=== PATIENT | male | born 1960 | race Caucasian/White ===

== ENCOUNTER 2022-02-02 06:23 | Observation (INO) ==
--- NOTE | 2022-01-11 15:42 | PAT Medication Instructions ---
Medication Instructions Date of Service January 11, 2022 Home Medications Medication Instructions Recorded Raheem Guerrero #1 ea 12/17/21 atorvastatin 20 mg tablet (Lipitor) 20 mg PO QAM metformin 500 mg tablet,extended release 24 hr 500 mg PO QAM Raheem Guerrero DO NOT take the morning of surgery metformin 500 mg tablet,extended release 24 hr 500 mg PO QAM Take morning of surgery With a small sip of water, OTHERWISE NOTHING TO EAT OR DRINK AFTER MIDNIGHT: atorvastatin 20 mg tablet (Lipitor) 20 mg PO QAM Other Notes If you have any questions please call us at [phone] or [phone] or [phone] or [phone]
--- NOTE | 2022-01-14 10:32 | Anesthesiology Consultation ---
Date of Service January 14, 2022 Assessment & Plan (1) Encounter for pre-operative examination: - check BSG am DOS. *Patient prefers to be called "Tork/torque" which is his nickname, states may be confused post-op being referred to as Tian. - Outpatient joint pathway: Per surgeon and patient, plan for outpatient joint program. Case discussed with Dr. Sawyer who advised patient is an acceptable candidate for [facility] from anesthesia perspective pending perioperative course. Pending patient is motivated, has good support and surgeon's office completes [facility] preop requirements- patient may proceed with outpatient TKA. - cardiology 07/2019 [facility]: "...earlier this year had a traumatic brain injury after fall during a pickle ball game. After fall during a pickle ball game. During his hospital admission the patient had a short episode of atrial fibrillation. He has now completely recovered from his injuries. He is back to playing [employer] ball and has no new cardiac complaints today. He denies heart palpitations or tachycardia. He has had no dizziness or lightheadedness. He denies chest pain. A 2 week monitor after the above indicated no episodes of atrial fibrillation...Recommendations: I do not playing any additional cardiac testing is indicated. The patient is doing well. At this point we will see him on an as-needed basis..." - COVID screening: Per assessment on 01/14/2022: Travel screen negative, no known COVID-19 positive contacts or current COVID-19 related symptoms in past 2 weeks. Surgeon arranging preop COVID testing, /2021. Awaiting results. Chart Review Chart Review: Acceptable Risk for Surgery and Patient seen in Pre Admission Testing Teaching & Discussion Pre-Anesthesia Teaching/Discussion Notes: Instructed NPO after midnight before surgery, except medications with 15 cc of water. Medication instructions provided according to the PAT guidelines. History Surgery Operation Date: 02/02/22 12:55 Proposed Procedures p Left Total Knee Arthroplasty - Vidal Martel MD Height/Weight Height: 5 ft 7 in Weight: 87.6 kg Allergies Allergy/AdvReac Type Severity Reaction Status Date / Time No Known Allergies Allergy Verified 01/11/22 08:09 Medications Home Medications Medication Instructions Recorded Confirmed Last Taken atorvastatin 20 mg tablet (Lipitor) 20 mg PO QAM 01/17/19 01/11/22 Unknown metformin 500 mg tablet,extended 500 mg PO QAM 01/17/19 01/11/22 Unknown release 24 hr Wheeled Walker #1 ea 12/17/21 12/17/21 Unknown Past Medical History Medical History (Updated 01/15/22 @ 15:23 by Shakira Christian PA-C) Cervical spine fracture history of, 01/2019, trauma d/t fall Chronic kidney disease, stage 3b Cr 1.7-2.0 over past 2 yrs, 1.9 10/2021, follows with [facility] nephrology History of subdural hematoma 01/2019, fall from standing height during sporting event, monitored without intervention per neurosurg records Hx of fracture of skull 01/2019, occipital fracture, d/t fall from standing height during sporting event, no intervention needed Hx of melanoma of skin WIDE MARGIN SECTION>RT ARM Hyperlipidemia Osteoarthritis Paroxysmal atrial fibrillation acute episode during admission for TBI, echo and 2 week monitor ordered outpt by cardio, negative Holter monitor and pt d/c from cardio clinic 07/2019 per [facility] cardio records Subarachnoid hemorrhage 01/2019, fall from standing height during sporting event, monitored without intervention per neurosurg records Traumatic intraparenchymal hemorrhage 01/2019, fall from standing height during sporting event, monitored without intervention per neurosurg records Type 2 diabetes mellitus NIDDM Patient denies h/o stroke, seizures, heart attack, heart failure, HTN, blood clots or blood transfusions. Exercise / Class Metabolic Activity II 4-5 Yardwork/Stairs/Walk up hill (denies CP or SOB with 1 FOS) Past Family History Family History Other Family history non-contributory No family history of adverse response to anesthesia Past Surgical History Surgical History H/O knee surgery LEFT>ACL REPAIR H/O sinus surgery POLYPS REMOVED H/O wrist surgery LEFT/RT WRIST FUSION History of colonoscopy History of tooth extraction Past Anesthesia History No Family Hx of Anesthesia Complications and Other ("grouchy" upon waking after surgery ) History of PONV No Hx of PONV and No Hx of Motion Sickness Social History Smoking Status: Never smoker tobacco type: smokeless tobacco Do You Dip or Chew Tobacco: No (QUIT 3 MONTHS AGO) Hx Alcohol Use: No Alcohol Intake Frequency Comment: QUIT 10 YEARS AGO Hx Substance Use: Yes substance use type: marijuana Last Used Substance Other:: LAST USED>COUPLE DAYS AGO (ADVISED) Review of Systems Snoring, denies witnessed apneas or sleep studies. Patient denies chest pain, shortness of breath, dyspnea on exertion, reflux, fever, chills, cough, wheezing, or palpitations. Physical Exam Vital Signs Vitals BP 124/78 P 72 TEMP 98.2 SP02 97% on RA RESP 17 Physical Full cervical extension range of motion without pain Full TMJ range of motion TMD 3 finger breaths Mallampati Score 2 Dentition: intact, caps throughout; denies loose teeth or bridges Lungs: normal respiratory effort. Clear throughout to auscultation, no adventitious breath sounds Cardiac: regular rate and rhythm, no murmurs noted Carotid arteries: negative bruit bilat Extremities: no distal extremity edema Lab Results Anesthesia Preop Results Results Anesthesia Widget: WBC 6.66 K/uL (4.8-10.8) 01/14/22 Hgb 12.6 g/dL (14.0-18.0) L 01/14/22 Hct 38.7 % (42-52) L 01/14/22 Plt 315 K/uL (130-400) 01/14/22 Na 139 mmol/L (136-145) 01/14/22 K 4.7 mmol/L (3.5-5.1) 01/14/22 Cl 111 mmol/L (98-107) H 01/14/22 CO2 20 mmol/L (21-32) L 01/14/22 BUN 35 mg/dl (6-23) H 01/14/22 Creat 1.83 mg/dl (0.6-1.4) H 01/14/22 Glucose Level 146 mg/dl (70-99(Fasting)) H 01/14/22 PT 10.0 Seconds (9.0-12.0) 01/14/22 PTT 25.5 Seconds (21.0-31.0) 01/14/22 INR 0.9 (0.9-1.1) 01/14/22 HA1c 7.0 % (4.5-5.6) H 01/14/22 Blood Type O Positive 01/14/22 Antibody Screen NEGATIVE 01/14/22 Testing Electrocardiogram Date: 01/14/22 NSR, rate 66 bpm Chest X-Ray Date: 01/14/22 FINDINGS: The lungs are clear. Cardiac silhouette is normal in size. No pleural effusions. No pneumothorax. IMPRESSION: No acute process. Echocardiogram Date: 02/20/19 EF 55-59% Normal LV wall motion Borderline concentric LV wall thickness increase Mild mitral regurgitation Mild tricuspid regurgitation Grade I diastolic dysfunction
--- NOTE | 2022-01-30 18:39 | History and Physical Report ---
DATE OF ADMISSION: 02/02/2022. CHIEF COMPLAINT: Bilateral knee pain and discomfort, left side greater than right. HISTORY OF PRESENT ILLNESS: The patient is a 61-year-old gentleman from [place] who presents for surgical treatment of his left knee. He has got a long history of bilateral knee pain and discomfor t. It has gotten worse over time. He had a left knee ACL reconstruction by Dr. Whatley with allogra ft tissue about 20 years ago. Over the past several years, he developed increased pain and discomfor t in both his knees. ____ one side being worse than the other. It is global pain. The more he is u p and on the knee more hurts. He has been through extensive conservative treatment, which has become less successful over time. He would like to have his left knee replaced. PAST MEDICAL HISTORY: 1. Elevated cholesterol. 2. Diabetes with an A1c of 7.0. 3. Chronic renal insufficiency with a creatinine about 1.83. PAST SURGICAL HISTORY: Includes: 1. Bilateral wrist fusion 15 years ago. 2. Left ACL reconstruction with allograft tissue, 20 years ago. ALLERGIES: None. CURRENT MEDICATIONS: 1. Atorvastatin. 2. Metformin. SOCIAL HISTORY: A 61-year-old male. Lives in [place]. Does not smoke. FAMILY HISTORY: Noncontributory. REVIEW OF SYSTEMS: Significant for diabetes. No chest pain or shortness of breath. No history of D VT or PE. It does look like he has got some chronic renal insufficiency, possibly related to his lisa betes. PHYSICAL EXAMINATION: GENERAL: Shows a pleasant middle-aged male. Looks to be in pretty good health. HEENT: Benign. NECK: Supple. No lymphadenopathy. LUNGS: Clear to auscultation. HEART: Has a regular rate and rhythm. ABDOMEN: Soft, nontender, nondistended. EXTREMITIES: Grossly neurovascularly intact except as follows. Examination of the left knee revealed patient walks without any obvious limp. He has got slight valg us alignment to his knee. Small to moderate-sized knee effusion. Range of motion about 5 degrees sh ort of full extension, 120 degrees of flexion. There is no instability. He has no pain with hip mot ion. Examination of the right knee reveals slight varus deformity, he has got bone hypertrophy medially. Tender along the medial joint line. Range of motion 5-120. No instability. X-RAYS: X-rays of both knees were reviewed. It shows advanced left knee DJD, primarily involving th e lateral and patellofemoral compartments. He has evidence of the previous ACL reconstruction. X-rays of the right knee reveal advanced right knee medial compartment DJD. ASSESSMENT: A 61-year-old male with advanced bilateral knee degenerative joint disease, left side a bit worse than right. He has a history of anterior cruciate ligament reconstruction with allograft t issue, 20 years ago. He has failed conservative treatment and would like to have his left knee repla young. PLAN: We will take her to the operating room and do a left knee replacement. We will be prepared to remove any interference screws out as necessary. Due to his diabetes and a repeat surgery, we will likely put some vancomycin in the cement. The risks and benefits of this procedure were explained to the patient include but not limited to DVT, PE, , infection, neurological injury, vascular inju ry, bleeding problem, pain, limited range of motion, stiffness, failure to relieve her symptoms, inco mplete relief of symptoms, etc. The patient understands and desires to proceed. Informed consent wa s obtained. Due to his chronic renal insufficiency, we will hold off on any NSAIDs in the perioperative period. He is planning to be discharged to home. He is hoping to do this as an outpatient. He is going to [facility]. Job ID: [id number]
[~2022-02-02 06:23] MED LIST: ACETAMINOPHEN 500 MG TAB PO SCH; BUPIVACAINE LIPOSOME/PF 266 MG, BUPIVACAINE/EPINEPHRINE 50 ML, SODIUM CHLORIDE 0.9% 30 ... INFIL SCH; FAMOTIDINE 20 MG TAB PO SCH; GABAPENTIN 600 MG DOSE PO SCH; LR 500ML BOLUS, THEN 15ML/HR IV SCH; LR 60ML/HR IV SCH; Scopolamine 1 MG TDSY TD SCH; TRANEXAMIC ACID 1,000 MG **IV Intra-op IV SCH; ceFAZolin 2000MG 2,000 MG/15 ML SYR IV SCH
--- NOTE | 2022-02-02 06:53 | History & Physical Bridge Note ---
Date of Service February 02, 2022 History & Physical Bridge Note I have examined the patient, reviewed the History & Physical and in the interval since the performance of the History & Physical I have noted the following changes of clinical significance: no changes noted
[2022-02-02] MEDS ORDERED: ePHEDrine sulfate 50 MG/ML AMP IV PRN (07:07)
[2022-02-02] MEDS ORDERED: MEPERIDINE HCL 25 MG/ML CARP/VIAL IV PRN (07:07)
[2022-02-02] MEDS ORDERED: PHENYLEPHRINE 100MCG/ML 5ML SYR IV PRN (07:07)
[2022-02-02] MEDS ORDERED: LABETALOL HCL IV 5 MG/ML 20ML IV PRN (07:07)
[2022-02-02] MEDS ORDERED: ONDANSETRON INJ 2 MG/ML 2 ML VIAL IV PRN ×2 (07:07→16:05)
[2022-02-02] MEDS ORDERED: HYDROmorphone INJ 1 MG/ML SYRINGE IV PRN (07:07)
[2022-02-02] MEDS ORDERED: fentaNYL citrate 100 MCG/2 ML VIAL IV PRN (07:07)
[2022-02-02] MEDS ORDERED: ATROPINE SULFATE 0.1 MG/ML 10ML SYR IV PRN (07:07)
[2022-02-02] MEDS ORDERED: EPINEPHrine INJ 1 MG/ML AMP ONE (07:27)
[2022-02-02] MEDS ORDERED: ROPIVACAINE 0.5% 5 MG/ML 30 ML VIAL ONE (07:27)
[2022-02-02] MEDS ORDERED: MEPIVACAINE HCL 2% 20 ML VIAL ONE (07:28)
[2022-02-02] MEDS ORDERED: MIDAZOLAM HCL 1 MG/ML 2ML VIAL ONE (07:34)
[2022-02-02] MEDS ORDERED: BUPIVACAINE LIPOSOME 1.3% 266 MG/20 ML VIAL ONE (08:49)
[2022-02-02] MEDS ORDERED: SODIUM CHLORIDE 0.9% PF 50 ML VIAL ONE (08:49)
[2022-02-02] MEDS ORDERED: BUPIVACAINE/EPINEPHRINE 0.25% 1:200,000 30 ML VIAL ONE (08:49)
[2022-02-02] MEDS ORDERED: PROPOFOL IV EMULSION 10 MG/ML 20 ML VIAL IV ONE ×3 (09:33→10:50)
[2022-02-02] MEDS ORDERED: LIDOCAINE 2% 2 ML VIAL/AMP(20MG/ML) INFIL ONE (09:33)
[2022-02-02] MEDS ORDERED: ONDANSETRON INJ 2 MG/ML 2 ML VIAL ONE (09:33)
[2022-02-02] MEDS ORDERED: VANCOMYCIN HCL 1000MG/20ML VIAL ONE (10:33)
[2022-02-02] MEDS ORDERED: KETOROLAC 30 MG/ML VIAL ONE (10:44)
[2022-02-02] MEDS ORDERED: oxyCODONE/ACETAMINOPHEN 5mg/325mg TAB PO PRN (11:15)
[2022-02-02] MEDS ORDERED: ceFAZolin 2000MG 2,000 MG/15 ML SYR IV ONE (11:15)
--- NOTE | 2022-02-02 11:25 | Operative Report ---
PG Post Operative Report Pre & Post Diagnosis Operation Date: 02/02/22 08:50 Pre-Op Diagnosis: Left Knee--Advanced Degenerative Joint Disease and Retained Hardware (screws x2) Post-Op Diagnosis: Left Knee--Advanced Degenerative Joint Disease and Retained Hardware (screws x2) I identified the patient and participated in the time-out.: Yes Procedure Operation Date: 02/02/22 08:50 Actual Procedures p Left Total Knee Arthroplasty with Removal Interference screws(Left) - Vidal Martel MD Surgeon Vidal Martel MD Senior Cyber Intelligence Analyst Gonzales Buenrostro PA-C Estimated Blood Loss 50 Findings Consistent with Post-Op Diagnosis Operative findings were advanced grade 4 [id number] disease in all 3 compartments. There is no a lot of eburnation but full-thickness cartilage loss in all 3 compartments. He had a flexion contracture of 10 to 15 degrees. Moderate-sized joint effusion. Fluids 1000 cc Specimens Left knee sent for pathology Drains None Anesthesia Type Spinal MAC Complications none Disposition Accompanied Patient To Recovery: No Indications Patient is 61-year-old fairly active gentleman who has had a long history of left knee problems. He had an ACL reconstruction with allograft tissue about 20 years ago. Over the past 5 years he developed increased pain discomfort swelling in his knee. Failed all conservative measures. X-rays showed advanced left knee DJD prickly in the lateral side. He elected proceed with total knee arthroplasty. Description of Procedure Operative implants consist of: 1. Biomet Vanguard size 75 left posterior stabilized femoral component. 2. 79 Biomet tibial tray. 3. 10 mm posterior stabilized polyethylene insert. 4. 31 x 8 all polypatella. The patient was taken the operating, identified, and placed on the operating table supine position protectors were appropriately padded. IV antibiotics tried by anesthesia team. A spinal anesthetic and abductor canal block had provided in the holding area. A left thigh turn was then placed to the left lower extremities and prepped and draped in usual sterile fashion. Left leg was elevate exsanguinated use of of an Esmarch. The tourniquet was placed at 300 mmHg. An anterior approach to the left knee was then performed through longitudinal incision centered over the patella. This did incorporate his distal incision from his ACL reconstruction years ago. Sharp dissection was carried through subcutaneous tissue down to the extensor mechanism. A medial parapatellar arthrotomy incision was made. Some subperiosteal dissection was carried out medially. The fat pad was resected beneath patella tendon. Lateral patellofemoral ligament was released. Patella subluxated laterally and the knee was flexed. The osteophytes were taken off distal femur. The ACL and PCL were noted released from the distal femur and the tibia subluxated anteriorly. The external tibial alignment jig was then placed in the anterior face of the tibia and adjusted 12 mm medially. Proximal tibial cut was made remove about 3 to 4 mm of bone from the medial side. The tibia sized to a size 79. Some osteophytes were taken off medially. Attention drawn the femur. The distal femur examined the sharp drop with intramedullary canal was suction. A left 5 degree valgus cutting guide was placed. Distal femoral cutting block was pinned in place. Distal femoral cut was made to take an additional 5 mm of bone off distal femur to account somewhat for his flexion contracture. The f emur was then sized to a size 75. We did downsize this slightly. The AP cutting block was pinned parallel to the epicondylar axis which was 5 degrees of external rotation. Anterior cut, anterior chamfer, posterior cut, posterior chamfer cuts were made. Box cutting guide was placed in just slight lateral box cut was made. Upon time trying to make the box cut we did run into the interference screw in the femur. I added to a curette this out and then remove this without incident. The remainder of the box cut was then completed. The knee was flexed. The remnants of the medial and lateral menisci were excised. The osteophytes were taken off the posterior aspect the femur. A trial femoral component was placed. The tibial tray was pinned in maximum external rotation and the drill and stem punch were used to create defect in the proximal tibia for the tibial tray. Of note, while a placed in the tibial tray I did had run into the interference screws the tibia. I had to a curette that out from the top in order to locate where it was below. We then had to use an osteotome in order to expose it distally. Once I was able to expose this I was able to take a hemostat and unscrew the screw and remove it without difficulty. The knee was then trialed and the 10 mm insert fit most appropriately. Attention drawn the patella. Patella was cleaned of all soft tissue. Patella thickness measured 22 mm in thickness was cut down to 13. It was sized to a size 31 patella. The lug holes were drilled for the 31 patella. The lateral osteophyte is moved. Patella button was placed. Knee was taken through range of motion patella tracked nicely with no thumbs test. Attention drawn to place the permanent components. Nupathe all trial components removed. Bone plug was placed in the distal femur limit blood loss. Double batch Palacos G cement was mixed. I did add an additional gram of vancomycin due to his history of surgery on this side along with his diabetes. A Biomet Vanguard size 75 left posterior stabilized femoral component, size 79 tibial tray, 10 mm posterior stabilized polyethylene insert, and a 31 x 8 all polypatella then cemented in place. Knee was brought out into full extension until cement hardened. Final cement check was then performed. Pericapsular tissues were injected with total of 100 cc of combination of 20 cc of Exparel, 30 cc normal saline, 50 cc of quarter percent Marcaine with epinephrine. Patient did receive 1 g tranexamic acid. The tourniquet was let down for final turn time 70 minutes. Hemostasis assured use electrocautery. Extensor mechanism closed with combination 1 PDS suture #1 Vicryl suture in [id number] fashion. Extensor mechanism checked found to be intact the subcutaneous tissue then closed with 2 Dexon suture in a buried interrupted fashion skin was closed skin magdaleno. Leg was then cleaned and dried a sterile dressing was Xeroform, 4 x 4's, sterile cast padding, Fercho bandage were applied. The patient then transferred to the recovery room in stable condition. Patient tolerated procedure well and there were no complications. Gonzales Buenrostro, my physician corporate legal assistant, was present for the entire procedure. His assistance was essential and required for appropriate patient positioning, prepping and draping, surgical exposure, performing the technical details of the operation, placement the implants, closure of the wound, and placement of the sterile bandage. I attest to the content of the Intraoperative Record and any orders documented therein. Any exceptions are noted below.
--- NOTE | 2022-02-02 11:41 | XRay Report ---
TWO VIEWS LEFT KNEE CLINICAL HISTORY: Postoperative examination. FINDINGS: AP and crosstable lateral portable views of the left knee are obtained. A left knee arthrop lasty is in near anatomic alignment. There has been undersurface remodeling of the patella. No acute fracture is seen. There are expected postoperative changes around the knee including skin clips, soft tissue edema, and subcutaneous gas. There is atherosclerotic calcification of the regional arteries. IMPRESSION: Expected postoperative changes status post left knee arthroplasty. No acute fracture is s een. ACT 112: Negative or not required by law. Electronically signed by: Amadou Dunne M.D. 02/02/2022 11:39 AM
--- NOTE | 2022-02-02 12:15 | Anesthesiology Progress Note ---
Date of Service February 02, 2022 Anesthesia Post Procedure Vital Signs Vital Signs: Temp Pulse Pulse Resp BP BP Pulse Ox 02/02/22 12:00 97.0 F L 60 17 113/69 96 02/02/22 11:50 64 17 113/63 99 02/02/22 11:40 57 L 14 117/68 99 02/02/22 11:30 69 14 113/80 99 02/02/22 11:23 97.0 F L 77 16 102/69 97 02/02/22 06:58 97.9 F 58 L 20 119/82 97 Pain Intensity Left Knee: Pain Intensity: 4 Transfer of Care Handoff Completed per policy Notes Mental Status: alert / awake / arousable and participated in evaluation Patient Amnestic to Procedure: Yes Nausea / Vomiting: adequately controlled Pain: adequately controlled Airway Patency, RR, SpO2: stable & adequate BP & HR: stable & adequate Hydration State: stable & adequate Neuraxial Anesthesia: was administered and sensory block is resolving Anesthetic Complications: no major complications apparent and Pt Satisfied with anesthetic care
[2022-02-02] MEDS ORDERED: PHARMACY GLYCEMIC MGMT CONSULT PRN (16:05)
[2022-02-02] MEDS ORDERED: GLUCAGON FOR INJ 1 MG VIAL SQ PRN (16:05)
[2022-02-02] MEDS ORDERED: DEXTROSE 50% 50 ML SYRINGE IV PRN (16:05)
[2022-02-02] MEDS ORDERED: bisacodyL 10 MG SUPP PR PRN (16:05)
[2022-02-02] MEDS ORDERED: HYDROmorphone INJ 0.5 MG/0.5 ML SYR IV PRN (16:05)
[2022-02-02] MEDS ORDERED: METOCLOPRAMIDE HCL INJ 5 MG/ML 2 ML VIAL IV PRN (16:05)
[2022-02-02] MEDS ORDERED: NALOXONE HCL 0.4 MG/1 ML VIAL/CARP IV PRN (16:05)
[2022-02-02] MEDS ORDERED: MAGNESIUM HYDROXIDE SUSP 30 ML UDC PO PRN (16:05)
[2022-02-02] MEDS ORDERED: TAMSULOSIN HCL 0.4 MG CAP PO PRN (16:05)
[2022-02-02] MEDS ORDERED: diphenhydrAMINE Capsule 25 MG CAP PO PRN (16:05)
[2022-02-02] MEDS ORDERED: CARBOHYDRATES FOR HYPOGLYCEMIA PO PRN (16:05)
[2022-02-02] MEDS ORDERED: GLUCOSE 10 TABS/TUBE PO PRN (16:05)
[2022-02-02] MEDS ORDERED: ALUMINUM/MAGNESIUM SUSP 30 ML UDC PO PRN (16:05)
[2022-02-02] MEDS ORDERED: GLUCOSE 40% GEL 15 GM TUBE PO PRN (16:05)
[2022-02-02] MEDS: Scopolamine CHECK PATCH PLACEMENT SCH (18:14)
[2022-02-02] MEDS: SODIUM CHLORIDE 0.9% 1000ML 1,000 ML IV SCH (18:14)
[2022-02-02] MEDS: KETOROLAC 30 MG/ML VIAL IV SCH (18:22)
[2022-02-02] MEDS: oxyCODONE HCL IR 5 MG TAB (IMMEDIATE RELEASE) PO PRN (18:22)
[2022-02-02] MEDS ORDERED: oxyCODONE HCL IR 5 MG TAB (IMMEDIATE RELEASE) PO PRN (18:35)
[2022-02-02] MEDS ORDERED: ONDANSETRON 4 MG OD TAB PO PRN (19:05)
--- NOTE | 2022-02-02 19:13 | Progress Notes ---
DATE OF SERVICE: 02/02/2022. SUBJECTIVE: A 61-year-old gentleman, postoperative from a left knee replacement. He is doing reason ably well. Unfortunately, he did not pass therapy. His knee continues to buckle on him when they ar e trying to walk him and did not feel safe to send him home. He has got no other complaints. Some m oderate pain, but controlled. No chest pain or shortness of breath. Not feeling dizzy or lightheade d. OBJECTIVE: VITAL SIGNS: Temperature 36.6. Vital signs are stable. PHYSICAL EXAMINATION: GENERAL: Shows a pleasant middle-aged male. He is sitting up in bed and looks comfortable. LUNGS: Clear to auscultation. HEART: Has a regular rate and rhythm. ABDOMEN: Soft, nontender, nondistended. EXTREMITIES: Grossly neurovascularly intact except as follows: Examination of the left leg reveals the dressing to be clean, dry and intact. He can do a straight leg raise with some effort, a little bit of a lag. He can dorsiflex and plantarflex his foot appropriately. He is neurologically intact . X-RAYS: X-rays of the left knee from recovery room are reviewed. It shows a left cemented posterior stabilized total knee arthroplasty. Components looked to be in good position. No signs of problems . ASSESSMENT: A 61-year-old gentleman postoperative from a left knee replacement and hardware removal, doing well. Unfortunately, he did not pass therapy. PLAN: We are going to admit him for observation overnight. We will do therapy in the morning. If h e does okay, we will get him home. DVT prophylaxis includes thigh-high TEDs, SCDs, and aspirin twice a day. Continue current pain regimen. 24 hours of IV antibiotics. Job ID: [id number]
[2022-02-02] MEDS ORDERED: ASPIRIN 81 MG ECTAB PO SCH (21:00)
[2022-02-02] MEDS ORDERED: SENNA 8.6 MG TAB PO SCH (21:00)
[2022-02-02] MEDS: INSULIN ASPART PER UNIT SC SCH (21:00)
[2022-02-02] MEDS: ceFAZolin 2000MG 2,000 MG/15 ML SYR IV SCH (21:18)
[2022-02-02] MEDS: ACETAMINOPHEN 500 MG TAB PO SCH (21:19)
[2022-02-02] MEDS: ASCORBIC ACID 500 MG TAB PO SCH (21:20)
[2022-02-02] MEDS: DOCUSATE SODIUM 100 MG CAP PO SCH (21:21)
[2022-02-02] MEDS: ASPIRIN 81 MG ECTAB PO SCH (21:22)
[2022-02-02] MEDS: TAPENTADOL HCL ER 50 MG TABCR PO SCH (21:25)
[2022-02-02] MEDS ORDERED: TRANEXAMIC ACID / 0.7% NACL 1,000 MG/100 ML BAG IV SCH (22:15)
[2022-02-03] MEDS: KETOROLAC 30 MG/ML VIAL IV SCH ×2 (00:01→05:14)
[2022-02-03] MEDS: Scopolamine CHECK PATCH PLACEMENT SCH ×2 (05:04→09:25)
[2022-02-03] MEDS: SODIUM CHLORIDE 0.9% 1000ML 1,000 ML IV SCH (05:12)
[2022-02-03] MEDS: ACETAMINOPHEN 500 MG TAB PO SCH ×2 (05:13→13:32)
[2022-02-03] MEDS: ceFAZolin 2000MG 2,000 MG/15 ML SYR IV SCH (05:15)
[2022-02-03 06:27] LABS: Hematocrit (blood only) 32.3 % (42-52); Hemoglobin 10.4 g/dL (14.0-18.0); Mean Corpuscular Hemoglobin 28.4 pg (25-34); Mean Corpuscular Hgb Conc 32.2 g/dL (32-36); Mean Corpuscular Volume 88.3 fL (80-100); Mean Platelet Volume 9.5 fL (7.4-10.4); Platelet Count 189 K/uL (130-400); RDW Coefficient of Variation 14.8 % (11.5-14.5); Red Blood Count 3.66 M/uL (4.7-6.1); White Blood Count 9.48 K/uL (4.8-10.8)
[2022-02-03 06:44] LABS: BUN Creatinine Ratio 13.5 (10-20); Creatinine Clr Calc Pharmacy 35.7 ml/min; Est GFR (African American) 35.1 ml/min; Est GFR (Non-African American) 30.2 ml/min; Potassium 4.8 mmol/L (3.5-5.1)
[2022-02-03] MEDS ORDERED: DOCUSATE SODIUM/SENNA 50/8.6MG TAB PO SCH (09:00)
[2022-02-03] MEDS ORDERED: TAMSULOSIN HCL 0.4 MG CAP PO SCH (09:00)
[2022-02-03] MEDS ORDERED: MULTIVITAMIN TAB PO SCH (09:00)
[2022-02-03] MEDS ORDERED: ATORVASTATIN 20 MG TAB PO SCH (09:00)
[2022-02-03] MEDS: TAPENTADOL HCL ER 50 MG TABCR PO SCH (09:24)
[2022-02-03] MEDS: ASCORBIC ACID 500 MG TAB PO SCH (09:25)
[2022-02-03] MEDS: ASPIRIN 81 MG ECTAB PO SCH (09:26)
[2022-02-03] MEDS: DOCUSATE SODIUM 100 MG CAP PO SCH (09:27)
[2022-02-03] MEDS: INSULIN ASPART PER UNIT SC SCH ×2 (10:40→13:17)
--- NOTE | 2022-02-03 10:49 | XRay Report ---
XR knee LT 1 or 2V routine CLINICAL HISTORY: s/p tka, fall TECHNIQUE: 2 views of the left knee were obtained. Comparison: Comparison is made to left knee radiographs 02/02/2022 FINDINGS: Again seen are postoperative changes including surgical staple placement, left knee arthroplasty The alignment is anatomic. Joint spaces are well-preserved. No joint effusion is seen. No soft tissue abn ormality is seen. IMPRESSION: No acute abnormality is seen. Redemonstration of postsurgical changes, unchanged from prior exam. ACT 112: Negative or not required by law. Electronically signed by: Neil Jarrett M.D. 02/03/2022 10:47 AM
[2022-02-03 11:16] VITALS: BP 134/75; PULSE 84; TEMP 98.4; O2SAT 96
--- NOTE | 2022-02-03 11:52 | Progress Notes ---
DATE OF SERVICE: 02/03/2022. SUBJECTIVE: A 61-year-old gentleman now postoperative day 1 from a left knee replacement. He is margarette eduled to have this done as an outpatient, but his spinal did not wear off and he was having quite a bit of leg weakness, so he was admitted for observation overnight. Last evening, he got up on his ow n and tried to walk around and his knee gave out and he fell. He had an unwitnessed fall. He got up on his own and then reported to the nursing staff. He did have some more bleeding and they reinforc ed his dressing. Pain is moderate in severity. No other complaints. OBJECTIVE: VITAL SIGNS: Temperature is 36.8. Vital signs are stable. GENERAL: Shows a pleasant middle-aged male. He is sitting up in bed and looks pretty comfortable. LUNGS: Clear to auscultation. HEART: Regular rate and rhythm. ABDOMEN: Soft, nontender, nondistended. EXTREMITIES: Grossly neurovascularly intact except as follows: Examination of the left leg with the dressing removed revealed one staple to be pulled out in the mid to inferior aspect of the wound and then another which looked like it was shifted to the side a bit. All the other magdaleno are intact. He does have a little bit of fluid in his prepatellar bursa area. There is no active bleeding or dr chakraborty now. He can do a good straight leg raise with good resistance. He is neurologically intact o therwise. He can dorsiflex and plantarflex his foot appropriately. X-RAYS: X-rays of the left knee from today were reviewed. It shows a cemented posterior stabilized total knee arthroplasty. Components look to be in good position. No signs of problems. The air in the joint from yesterday looks to be resolved and gone. No new air present. ASSESSMENT: A 61-year-old gentleman, postoperative day 1 from a left knee replacement with an unwitn essed fall. He did displace two of the magdaleno, but his extensor mechanism appears to be intact. Th ere is no active drainage. PLAN: We are going to remove these 2 magdaleno and I am going to place 2 magdaleno under sterile conditi on. We will do therapy and see how he does. If he does okay, we will get him home. I am going to p lace him on some p.o. antibiotics for a week. As far as DVT prophylaxis, he will continue to wear TEDs and SCDs, and a baby aspirin twice a day. Job ID: [id number]
[2022-02-03] MEDS: oxyCODONE HCL IR 5 MG TAB (IMMEDIATE RELEASE) PO PRN (12:34)
== END 2022-02-03 14:45 | disposition home health service (06) ==
LOC: 3W 06:23 → ASU 06:23